=== PATIENT | male | born 1980 | race Caucasian/White ===

== ENCOUNTER 2019-04-11 12:58 | Emergency (ER) | payer OTHER, SELFPAY ==
--- NOTE | 2019-04-11 13:04 | NUR.NOTE ---
Nursing Note:cut his third digit right hand on a machete at approximately 1200 3 cm
[2019-04-11 13:08] VITALS: PULSE 70; RESP 16; TEMP 37.1; O2SAT 99
--- NOTE | 2019-04-11 13:20 | ED.GENADUL_ITS ---
Discharge Plan Disposition Patient Disposition: HOME Condition: Fair Discharge Details Chief Complaint: Laceration Clinical Impression: Finger laceration Primary Care Provider: Roxy,Local ED Provider: Vijaya Trivedi Discharge Instructions Instructions: Finger Laceration (ED), Skin Adhesive Care (ED) Additional Instructions: Keep wound clean, dry, covered. Please allow adhesive to come off naturally. Do not apply any ointment to this. To try today. You may wash with running water tomorrow. Try not to soak or submerge as this will increase your risk of infection. Please monitor for signs of infection including redness, warmth, drainage, increased pain, fever/chills. If you develop these or any new/worsening symptoms please seek care urgently once again. Otherwise, please follow-up with primary care as needed Discharge Data Discharge Date/Time-TO BE ENTERED AT DEPARTURE: 04/11/19 14:33 Medical Decision Making Patient is a 39-year-old [id number] male presents today for evaluation of right middle finger laceration he sustained prior to arrival. Reports a prior to arrival he was working with a machete when he slipped and he tried to grab it. He was wearing leather gloves but this did go through the gloves. He has a 1 cm horizontal bleeding laceration to the pad of the middle finger of the distal phalanx. Capillary refill is intact. Sensation is intact. Full range of motion. Patient did the subcutaneous tissue with slow bleed. Patient's tetanus is out of not up-to-date, will update this here today. Patient I discussed with discussed benefits of closure techniques, plan to closed with adhesive. He voices understanding and wished to proceed. Using standard sterile technique, the wound was copiously irrigated and cleansed with chlorhexidine. No foreign body or debris was noted. Wound was explored to base in bloodless field, your tourniquet was used. A thin layer of adhesive was then applied over this. Patient I discussed wound care in depth. We discussed the care of the adhesive and activities that he should avoid. Will cover with a Band-Aid to help protect the adhesive and keep him from picking at this. We discussed signs of in fections and when to seek care urgently once again. All questions and concerns were addressed and he is in agreement this plan. HPI General Mode of arrival: ambulatory . Date/Time Provider Initiated Documentation: 04/11/19 13:01 . Limitations to Documentation: no limitations . Information obtained by: patient and RN notes reviewed . History of Present Illness 39 year old M presents to the emergency department with the chief complaint of right hand middle finger laceration, described as mild, with intensity rated at 2. Quality is described as burning, and is localized to t he right and upper extremity. Patient reports no radiation. Patient started experiencing this minute(s) and it has been constant. No relieving factors improve symptom(s), No exacerbating factors reported . Patient notes no other symptoms.. Patient did receive the following treatments prior to arrival, other (washed prior to arrival) Related Data Allergies Allergy/AdvReac Type Severity Reaction Status Date / Time amoxicillin Allergy Severe Anaphylaxsi Unverified 04/11/19 13:10 s Penicillins Allergy Severe Anaphylaxsi Unverified 04/11/19 13:09 s General Stated Complaint: Laceration DHRUV: 3 Review of Systems Constitutional Reports as per HPI, Denies chills and Denies fever(s) Musculoskeletal Reports as per HPI Integumentary/Breasts Reports as per HPI Neurologic Reports as per HPI, Denies sensory deficit and Denies paresthesias [facility] Social History Smoking/Tobacco Use Status: Never Alcohol Intake: current Alcohol Intake frequency: a few times a week Drug use: Never Substance use type: does not use Do you feel safe at home: Yes Do you feel safe in your relationship?: Yes Exam Const General: cooperative, healthy appearing, comfortable, no acute distress and well developed Nutritional Appearance: average body habitus and well nourished Orientation: alert and awake Resp Effort & Inspection: normal respiratory effort, able to speak in complete sentences and no respiratory distress Cardio Rate: regular rate Rhythm: regular rhythm Skin Trauma: laceration (1cm horizontal across pad middle finger right hand) Neuro General: alert and awake Cognition: normal cognition Speech: speech normal Gait: normal gait Sensory Exam: no sensory deficits noted Extrem Right upper extremity: full ROM and normal capillary refill; abnormal to inspection (laceration as above, actively bleeding) Psych Appearance: grossly normal and well kempt Mental Status: mental status grossly normal Speech and Movement: speech and movement normal Course Vital Signs Temperature 37.1 C 04/11/19 13:08 Pulse 70 04/11/19 13:08 Respiratory Rate 16 04/11/19 13:08 Pulse Oximetry 99 04/11/19 13:08 Temperature 37.1 C 04/11/19 13:08 Temperature Source Skin 04/11/19 13:08 Pulse 70 04/11/19 13:08 Respiratory Rate 16 04/11/19 13:08 Respiratory Effort 04/11/19 13:11 Pulse Oximetry 99 04/11/19 13:08 Oxygen Delivery Method Room Air 04/11/19 13:08 Oxygen Flow Rate 0 04/11/19 13:08 Pain Level 2 04/11/19 13:08
[2019-04-11] MEDS: Tetanus & Diphtheria Tox,ADULT 0.5 ML VIAL IM (14:28)
--- NOTE | 2019-04-11 14:36 | NUR.NOTE ---
patient received discharge and follow up instruction per PA order Nursing Note:
== END 2019-04-11 14:33 | disposition home or self-care (01) ==
PROVIDERS: Emergency Provider Physician Assistant
DX: S61.212A Laceration without foreign body of right middle finger without damage to nail, initial encounter (principal); W26.0XXA Contact with knife, initial encounter
CPT/HCPCS: 12001; 90471